=== PATIENT | male | born 1935 | race Two or more races ===

== ENCOUNTER 2019-06-30 23:37 | Inpatient (IN) | payer MEDICARE, OTHER ==
[~2019-06-30] VITALS: Ht 165.1 cm; Wt 80.3 kg
--- NOTE | 2019-06-30 23:37 | NUR ---
PT BIB EMS C/O NONRADIATING INTERMITTENT MIDSTERNAL CP X2 DAYS, NOTED PT CONSTANTLY BURPING. PT AOX4. RESP EVEN AND UNLABORED. PT ON MONITOR IN BED 2. WILL CONTINUE TO MONITOR.
--- NOTE | 2019-06-30 23:44 | NUR ---
TECH AT BEDSIDE FOR EKG
[2019-07-01] VITALS (28 sets, daily range): BP systolic 125–163; BP diastolic 25–93
--- NOTE | 2019-07-01 00:19 | NUR ---
RADIOLOGY AT BEDSIDE FOR XRAY
[2019-07-01 00:22] LABS: BASOPHILS # (AUTO) 0.1 /CMM (0.0-0.2); BASOPHILS % (AUTO) 1.3 % (0.0-2.0); EOSINOPHILS % (AUTO) 2.2 % (0.0-6.0); HEMATOCRIT 47 % (39-51); HEMOGLOBIN 15.9 g/dL (13.5-17.5); LYMPHOCYTES # (AUTO) 2.6 /CMM (0.8-4.8); LYMPHOCYTES % (AUTO) 30.5 % (20.0-44.0); MEAN CORPUSCULAR HGB CONC 34 g/dl (31.0-36.0); MEAN CORPUSCULAR VOLUME 92 fL (80-96); MONOCYTES % (AUTO) 11.2 % (2.0-12.0); NEUTROPHILS # (AUTO) 4.7 /CMM (1.8-8.9); NEUTROPHILS % (AUTO) 54.8 % (43.0-81.0); PLATELET COUNT (AUTO) 224 /CMM (150-450); RED BLOOD CELL COUNT(AUTO) 5.11 MIL/uL (4.5-6.0); WHITE BLOOD COUNT (AUTO) 8.6 K/uL (4.3-11.0)
--- NOTE | 2019-07-01 00:22 | NUR ---
TECH AT BEDSIDE FOR EKG
[2019-07-01 00:28] LABS: CALCIUM, SERUM 9.4 mg/dL (8.5-10.1); CREATININE 0.9 mg/dL (0.6-1.3); POTASSIUM 4.2 mmol/L (3.5-5.1)
[2019-07-01] MEDS ORDERED: ASPIRIN 81 MG TAB.CHEW ONE (00:29)
[2019-07-01] MEDS ORDERED: FAMOTIDINE (20 MG) 20 MG TABLET ONE (00:29)
[2019-07-01] MEDS ORDERED: FAMOTIDINE (20 MG) 20 MG TABLET PO ONE (00:30)
[2019-07-01] MEDS ORDERED: ASPIRIN 81 MG TAB.CHEW PO ONE (00:30)
--- NOTE | 2019-07-01 02:48 | NUR ---
CALLED NURSING CLAY PIGEON SETTER FOR TELE BED
--- NOTE | 2019-07-01 03:41 | NUR ---
REPORT GIVEN TO JULIO CESAR CAAL FOR TREY
[2019-07-01] MEDS ORDERED: ALBU1.257 IH (03:45)
[2019-07-01] MEDS ORDERED: ATEN25TA PO (03:45)
--- NOTE | 2019-07-01 04:01 | NUR ---
PHLEB AT BEDSIDE FOR BLOOD DRAW
--- NOTE | 2019-07-01 04:05 | NUR ---
SHELL REPRINT OPERATORRESTAURANT BUSSER NOTES RECEIVED FORM ER THIS 84 YO MALE,ALERT,ORIENTED X4,SPEAK QATARI/MALDIVIAN,WITH LITTLE TELUGU,WITH CHIEF COMPLAINTS OF CHEST PAIN X 2 DAYS,NO SOB.AMBULATE WITH STEADY GAIT.NO SKIN ISSUES.SALINE LOCK LEFT AC INTACT AND PATENT.CALL LIGHT IN REACH,NEEDS ANTICIPATED.
--- NOTE | 2019-07-01 04:20 | NUR ---
DATER ASSEMBLER NOTES REPORTED BY [employer] REPORTING CRITICAL SECOND TROPONIN RESULT OF.[id number].PATIENT DENIES PAIN AT THE MOMENT,TRYING TO SLEEP AT THE MOMENT.
--- NOTE | 2019-07-01 04:24 | NUR ---
PT TRANSFERRED TO THIRD FLOOR
--- NOTE | 2019-07-01 04:28 | NUR ---
AIRWAY CONTROLLER NOTES DR MCHUGH MADE AWARE WITH NEW ORDER TO GIVEN LOVENOX 80MG Q 12 HOURS SCHEDULED,TO START DOSE NOW,AWAITING FOR PHAMACY TO VERIFIED.
[2019-07-01] MEDS ORDERED: ENOXAPARIN SODIUM 80 MG/0.8 ML DISP.SYRIN SQ SCH ×2 (05:00→18:00)
[2019-07-01] MEDS ORDERED: NITROGLYCERIN 0.4 MG/TAB BOTTLE SL PRN (05:30)
[2019-07-01] MEDS ORDERED: ENOXAPARIN SODIUM 80 MG/0.8 ML DISP.SYRIN SQ ONE (05:30)
[2019-07-01] MEDS ORDERED: MORPHINE SULFATE INJ 2 MG/ML DISP.SYRIN IV PRN (05:30)
[2019-07-01] MEDS ORDERED: DEXTROSE 50%-WATER 50 ML DISP.SYRIN IV PRN (05:30)
--- NOTE | 2019-07-01 05:47 | NUR ---
OIL SCOUT NOTES STARTED ON LOVENOX 80MG SQ,GIVEN ON RIGHT UPPER ABDOMEN
--- NOTE | 2019-07-01 06:12 | NUR ---
SHINGLE CATCHER NOTES NOTED SOME SKIN RASH ON ABDOMINAL AREA,PICTURE TAKEN, ON CHART
[2019-07-01 06:24] LABS: THYROID STIMULATING HORMONE 3.441 uIU/mL (0.358-3.74)
--- NOTE | 2019-07-01 07:15 | NUR ---
INVESTIGATION CLERK OPENING NOTES RECEIVED PATIENT IN BED ALERT AND AWAKE ORIENTED X4. DENIES ANY C/O PAIN NOR DISCOMFORT. DENIES ANY C/O CHEST PAIN. NO SOB. AMBULATORY WITH STEADY GAIT. SL LEFT AC # 18 INTACT AND PATENT. BED IN LOWEST POSITION, LOCKED. CALL LIGHT WITHIN REACH. RESTING COMFORTABLY IN BED.
[2019-07-01] MEDS: BLOOD SUGAR DIAGNOSTIC 1 EACH STRIP IN SCH ×4 (08:25→21:11)
--- NOTE | 2019-07-01 09:05 | NUR ---
BED RUBBER NOTES PATIENT OFF UNIT FOR CTA HEART WITH 3D IMAGE.
[2019-07-01] MEDS ORDERED: IOHEXOL-350 100 ML VIAL IV ONE ×2 (09:12→09:52)
[2019-07-01] MEDS ORDERED: IV NS 0.9% 250 ML IV ONE (09:12)
[2019-07-01] MEDS ORDERED: CT SWABBABLE VALVE TRANS SET 1 EA INFUS.SET MC ONE (09:12)
[2019-07-01] MEDS ORDERED: METOPROLOL TARTRATE INJ 5 MG/5 ML AMPUL ONE ×2 (09:14→09:49)
[2019-07-01] MEDS: METOPROLOL TARTRATE INJ 5 MG/5 ML AMPUL IVP PRN ×5 (09:28→09:48)
[2019-07-01] MEDS ORDERED: NITROGLYCERIN 0.4 MG/TAB BOTTLE SL ONE (09:30)
--- NOTE | 2019-07-01 09:35 | NUR ---
RT NOTE ATTEMPTED ECG. PATIENT NOT AVAILABLE AT THIS TIME. JULIO CESAR [place] AWARE. WILL TRY AGAIN LATER.
[2019-07-01] MEDS: ASPIRIN 81 MG TAB.CHEW PO SCH (10:39)
[2019-07-01] MEDS: VALSARTAN 80 MG TABLET PO SCH (10:40)
--- NOTE | 2019-07-01 10:40 | NUR ---
ANODE WORKER NOTES PATIENT RETURNED TO UNIT FROM CTA B/P 132/70 HR 72. AM MEDS GIVEN SATISH WELL.
[2019-07-01] MEDS ORDERED: METOPROLOL TARTRATE 50 MG TABLET PO SCH ×3 (12:00→17:00)
--- NOTE | 2019-07-01 12:00 | NUR ---
TELEVISION PARTS TESTER NOTES PATIENT DUE METOPROLOL 50 MG, HOW EVER PATIENT REFUSED BP CHECK AND MED AT THIS TIME, DESPITE EXPLAINING OF RISK AND BENEFITS AT MULTIPLE TIMES. PATIENT IN NO DISTRESS. DENIES ANY C/O PAIN. RESPIRATION REGULAR AND UNLABORED. WILL CONTINUE TO MONITOR.
[2019-07-01] MEDS ORDERED: IODIXANOL 150 ML IV ONE (13:43)
[2019-07-01] MEDS ORDERED: MIDAZOLAM HCL 2 MG/2ML VIAL ONE (13:44)
[2019-07-01] MEDS ORDERED: LIDOCAINE HCL/PF 1% 30 ML SDV ONE (13:44)
[2019-07-01] MEDS ORDERED: VERAPAMIL HCL IV 5 MG/2 ML VIAL ONE (13:44)
[2019-07-01] MEDS ORDERED: NITROGLYCERIN ICAR 1,000 MCG/10 ML VIAL ICAR ONE (13:45)
[2019-07-01] MEDS ORDERED: FENTANYL PF 100MCG/2ML AMPUL ONE (13:45)
[2019-07-01] MEDS ORDERED: HEPARIN SODIUM, PORCINE 5000 UNITS/1 ML VIAL ONE (13:46)
[2019-07-01] MEDS ORDERED: IV NS 0.9% 1,000 ML ONE (13:53)
[2019-07-01] MEDS ORDERED: HEPARIN SODIUM, PORCINE 1,000 UNIT/ML VIAL ONE ×2 (14:02→14:03)
--- NOTE | 2019-07-01 14:02 | NUR ---
HITCH TECHNICIAN NOTES PATIENT OFF UNIT. LEFT FOR MAINTENANCE CARPENTER. PATIENT LEFT IN STABLE CONDITION VIA GURNEY. FAMILY TOOK PERSONAL BELONGINGS AND SIGNED BELONGING LIST.
[2019-07-01] MEDS ORDERED: IODIXANOL 320MG/ML 100 ML IV ONE (14:36)
[2019-07-01] MEDS ORDERED: ASPIRIN 325 MG TABLET ONE (14:46)
[2019-07-01] MEDS ORDERED: TICAGRELOR 90 MG TABLET PO ONE (14:46)
[2019-07-01] MEDS ORDERED: IODIXANOL 320MG/ML 50 ML IV ONE ×2 (14:47→15:31)
--- NOTE | 2019-07-01 17:25 | NUR ---
PROCESS DEVELOPMENT MANAGER NOTES PATIENT TRANSFERRED TO ICU FROM V BLOCK SAW OPERATOR. REPORT GIVEN TO
--- NOTE | 2019-07-01 17:40 | NUR ---
received pt from mason tender restoration labor, s/p stent placement, a/o x4, SR, TR band on LFA, no bleeding noted, SRI bandage on L arm, pulses are palpable, v/s stable, no pain, family at the bedside, seen by Dr. Combs.
--- NOTE | 2019-07-01 19:30 | NUR ---
INSPECTOR TUBESJULIO CESAR GALLOWAY AT [facility]. PT DECLINED HEAD CT. STATES LET ME REST FOR NOW. WILL INFORM . Addendum: 07/01/19 at 1957 by NAMRATA MOON RN WRONG PT
[2019-07-01] MEDS: ATORVASTATIN 40 MG TABLET PO SCH (21:11)
[2019-07-01] MEDS: TICAGRELOR 90 MG TABLET PO SCH (21:11)
[2019-07-01] MEDS: INSULIN REGULAR, HUMAN 100 UNIT/ML 3 ML VIAL SQ PRN (21:21)
--- NOTE | 2019-07-01 21:25 | NUR ---
GROCERY SUPERVISOR BLOOD GLUCOSE 199 PT DECLINED INULIN. CONTINUE TO MONITOR.
[2019-07-01] MEDS ORDERED: SIMVASTATIN 40 MG TABLET PO SCH (22:00)
[2019-07-01] MEDS ORDERED: SIMVASTATIN 20 MG TABLET PO SCH (22:00)
[2019-07-02] VITALS (47 sets, daily range): BP systolic 81–154; BP diastolic 32–100
--- NOTE | 2019-07-02 03:44 | NUR ---
SWIMMING POOL ATTENDANT PT EKG RHYTHM NOTED TO BE DIFFERENT ON MONITOR; EKG SHOWS AFIB. S/W PMD W/ORDERS FOR LABS IN AM. NO NEED TO CALL CARDIOLOGY AT THIS TIME.
[2019-07-02 04:16] LABS: BASOPHILS # (AUTO) 0.1 /CMM (0.0-0.2); BASOPHILS % (AUTO) 1.2 % (0.0-2.0); HEMATOCRIT 46 % (39-51); HEMOGLOBIN 15.4 g/dL (13.5-17.5); LYMPHOCYTES # (AUTO) 1.9 /CMM (0.8-4.8); LYMPHOCYTES % (AUTO) 15.4 % (20.0-44.0); MEAN CORPUSCULAR HGB CONC 34 g/dl (31.0-36.0); MEAN CORPUSCULAR VOLUME 91 fL (80-96); MONOCYTES % (AUTO) 8.1 % (2.0-12.0); NEUTROPHILS # (AUTO) 9.1 /CMM (1.8-8.9); NEUTROPHILS % (AUTO) 74.3 % (43.0-81.0); PLATELET COUNT (AUTO) 221 /CMM (150-450); RED BLOOD CELL COUNT(AUTO) 4.98 MIL/uL (4.5-6.0); WHITE BLOOD COUNT (AUTO) 12.2 K/uL (4.3-11.0)
[2019-07-02 04:38] LABS: CALCIUM, SERUM 9.2 mg/dL (8.5-10.1); CREATININE 0.9 mg/dL (0.6-1.3); MAGNESIUM 1.6 mg/dL (1.8-2.4); PHOSPHORUS 3.2 mg/dL (2.5-4.9); POTASSIUM 3.8 mmol/L (3.5-5.1)
--- NOTE | 2019-07-02 06:05 | NUR ---
REJECTED ITEMS CLERK NO BLEEDING NOTED; PULSES REMAIN STRONG.
[2019-07-02] MEDS ORDERED: AMIODARONE 900 MG in IV D5W 500 ML IV PRN (06:30)
[2019-07-02] MEDS ORDERED: AMIODARONE 150 MG in IV D5W 100 ML IV ONE (06:30)
--- NOTE | 2019-07-02 06:39 | NUR ---
CREPING MACHINE OPERATOR HELPER PT REFUSED SECOND IV ACCESS; MAGNESIUM AND AMIODARONE PENDING TO BE VERIFIED BY PHARMACY.
[2019-07-02] MEDS: Magnesium 1GM/D5W 100ML PREMIX 100 ML IV SCH ×2 (06:55→08:03)
[2019-07-02] MEDS: BLOOD SUGAR DIAGNOSTIC 1 EACH STRIP IN SCH ×4 (07:56→21:33)
[2019-07-02] MEDS: ASPIRIN 81 MG TAB.CHEW PO SCH (08:10)
[2019-07-02] MEDS: VALSARTAN 80 MG TABLET PO SCH (08:10)
[2019-07-02] MEDS: TICAGRELOR 90 MG TABLET PO SCH ×2 (08:10→16:14)
[2019-07-02] MEDS: APIXABAN 5 MG TABLET PO SCH ×2 (08:18→16:17)
--- NOTE | 2019-07-02 08:50 | NUR ---
received pt from ship rigger apprentice, a/o x4, A fib controlled since 299, on RA, sat well, tolerates diet, uses urinal, v/s stable, no pain, pt turns and repositions by himself.
[2019-07-02] MEDS ORDERED: AMIODARONE 900 MG in IV D5W 482 ML IV PRN (09:30)
--- NOTE | 2019-07-02 11:45 | NUR ---
patient converted back to NSR.
[2019-07-02] MEDS: INSULIN REGULAR, HUMAN 100 UNIT/ML 3 ML VIAL SQ PRN ×2 (12:13→16:51)
[2019-07-02] MEDS: AMIODARONE HCL 200 MG TABLET PO SCH (16:15)
--- NOTE | 2019-07-02 16:28 | NUR ---
pt is resting in the bed, a/o x4, NSR, off of amio gtt, v/s stable, no pain.
--- NOTE | 2019-07-02 19:09 | NUR ---
MANUGRAPHER. INITIAL ASSESSMENT. RECEIVED THE PT REST ON THE BED. AWAKE,A LEFT, FOLLOW COMMANDS. DEPARTMENT OF MATHEMATICS CHAIR SHOWING AT THIS TIME NSR WITH PAC. PT ON ROOM AIR. P DENIES CHEST PAIN. VITALS STABLE. WILL CONTINUE TO MONITOR VITALS.
[2019-07-02] MEDS: ATORVASTATIN 40 MG TABLET PO SCH (21:33)
[2019-07-03] VITALS (17 sets, daily range): BP systolic 99–152; BP diastolic 46–78
[2019-07-03 04:21] LABS: BASOPHILS # (AUTO) 0.1 /CMM (0.0-0.2); BASOPHILS % (AUTO) 0.6 % (0.0-2.0); EOSINOPHILS % (AUTO) 1.1 % (0.0-6.0); HEMATOCRIT 42 % (39-51); HEMOGLOBIN 14.3 g/dL (13.5-17.5); LYMPHOCYTES # (AUTO) 1.7 /CMM (0.8-4.8); LYMPHOCYTES % (AUTO) 18.1 % (20.0-44.0); MEAN CORPUSCULAR HGB CONC 34 g/dl (31.0-36.0); MEAN CORPUSCULAR VOLUME 92 fL (80-96); MONOCYTES # (AUTO) 0.9 /CMM (0.1-1.30); MONOCYTES % (AUTO) 9.3 % (2.0-12.0); NEUTROPHILS # (AUTO) 6.8 /CMM (1.8-8.9); NEUTROPHILS % (AUTO) 70.9 % (43.0-81.0); PLATELET COUNT (AUTO) 208 /CMM (150-450); RED BLOOD CELL COUNT(AUTO) 4.55 MIL/uL (4.5-6.0); WHITE BLOOD COUNT (AUTO) 9.5 K/uL (4.3-11.0)
[2019-07-03 04:39] LABS: ALBUMIN 3.4 g/dL (3.4-5.0); BILIRUBIN,TOTAL 1.1 mg/dL (0.2-1.0); CALCIUM, SERUM 8.9 mg/dL (8.5-10.1); MAGNESIUM 1.9 mg/dL (1.8-2.4); PHOSPHORUS 4.3 mg/dL (2.5-4.9); POTASSIUM 3.9 mmol/L (3.5-5.1); TOTAL PROTEIN, SERUM 6.9 g/dL (6.4-8.2)
--- NOTE | 2019-07-03 07:14 | NUR ---
FACTORY HAND NOTE RECEIVED PATIENT ASLEEP IN BED. NO SIGNS OR SYMPTOMS OF RESPIRATORY DISTRESS SATURATING 93% ON ROOM AIR. PATIENT A/O X4 LAO SPEAKING. NO C/O CHEST PAIN SINUS ON THE MONITOR. USING URINAL AT BEDSIDE CLEAR YELLOW URINE NOTE. R HAND # 20 GAUGE SALINE LOCKED. SAFETY/FALL PRECAUTIONS IN PLACE BED IN LOW LOCKED POSITION CALL LIGHT WITHIN REACH. WILL CONT TO MONITOR ACCORDINGLY.
[2019-07-03] MEDS: INSULIN REGULAR, HUMAN 100 UNIT/ML 3 ML VIAL SQ PRN (07:38)
[2019-07-03] MEDS: BLOOD SUGAR DIAGNOSTIC 1 EACH STRIP IN SCH (07:38)
[2019-07-03] MEDS: AMIODARONE HCL 200 MG TABLET PO SCH (08:08)
[2019-07-03] MEDS: VALSARTAN 80 MG TABLET PO SCH (08:08)
[2019-07-03] MEDS: ASPIRIN 81 MG TAB.CHEW PO SCH (08:08)
[2019-07-03] MEDS: TICAGRELOR 90 MG TABLET PO SCH (08:09)
[2019-07-03] MEDS: APIXABAN 5 MG TABLET PO SCH (08:09)
[2019-07-03] MEDS ORDERED: AMIO200T7 PO (09:21)
[2019-07-03] MEDS ORDERED: ATOR40TA PO (09:21)
[2019-07-03] MEDS ORDERED: ASPI-1169 PO (09:21)
[2019-07-03] MEDS ORDERED: APIX5TAB PO (09:21)
[2019-07-03] MEDS ORDERED: VALS80TA2 PO (09:21)
[2019-07-03] MEDS ORDERED: TICA90TA PO (09:21)
--- NOTE | 2019-07-03 10:20 | NUR ---
PATIENT ORDERS FOR DISCHARGE. DR TREADWELL SPOKE WITH SON GENO. ALL EXIT CARE DONE HAND OFF GIVEN TO PETRONA HARRELL
--- NOTE | 2019-07-03 11:52 | NUR ---
COMMERCIAL PAINTERMACHINE FELLER NOTES: Pt DC'd to home as ordered. Called Dr. Escobar regarding prescription of medication and clarified new home meds (ASA, Eliquis, Brillinta), per MD RX sent electronically to pt's pharmacy & said okay to take those anticoagulants at home. DC instructions & paperworks explained to the pt's son Margarito, special emphasis placed on medications to take (frequency, next dose, side effects) w/ verbalization of understanding. Confirmed w/ pt's son Margarito that they have pt's medications at home including Brillinta and also the Brillinta packet that they rec'd s/p PCI procedure. Additional instructions provided re: after care on L radial arm w/ verbalization of understanding. IV line access removed, pressure dressing applied, no s/sx of bleeding. All belongings sent w/ pt, nothing missing. No concerns/issues identified during transfer. Pt left the unit in stable condition via wheelchair accompanied by RN & family.
== END 2019-07-03 11:50 | disposition home or self-care (01) | DRG 246 ==
LOC: ER 23:39 → TELE 07-01 03:58 → ICU 07-01 16:30
PROVIDERS: ADMIT Student in an Organized Health Care Education/Training Program; ATTEND Student in an Organized Health Care Education/Training Program
PROC: 4A023N7 Measurement of Cardiac Sampling and Pressure, Left Heart, Percutaneous Approach (ICD-10-PCS; principal; 2019-07-01)
PROC: 027034Z Dilation of Coronary Artery, One Artery with Drug-eluting Intraluminal Device, Percutaneous Approach (ICD-10-PCS; 2019-07-01)
PROC: B2111ZZ Fluoroscopy of Multiple Coronary Arteries using Low Osmolar Contrast (ICD-10-PCS; 2019-07-01)
DX: I25.10 Atherosclerotic heart disease of native coronary artery without angina pectoris (principal); I21.4 Non-ST elevation (NSTEMI) myocardial infarction; I16.0 Hypertensive urgency; E11.9 Type 2 diabetes mellitus without complications; I10 Essential (primary) hypertension; E78.5 Hyperlipidemia, unspecified; Z79.51 Long term (current) use of inhaled steroids; Z79.899 Other long term (current) drug therapy; D72.829 Elevated white blood cell count, unspecified; I70.0 Atherosclerosis of aorta; J45.909 Unspecified asthma, uncomplicated; F17.200 Nicotine dependence, unspecified, uncomplicated; I48.91 Unspecified atrial fibrillation
CPT/HCPCS: 36218; 36415; 71045-TC; 75574; 80048-TC; 80053-TC; 80061-TC; 82962-TC; 83735-TC; 84100-TC; 84439-TC; 84443-TC; 84484-TC; 85025-TC; 87081-TC; 92929; 92980; 92982; 92995-TC; 93307-TC; 93452; C1725; C1769; C1887; G0269; G0378; J0282; J1644; J1650; J1815; J2250; J3010; J3475; J3490; J7050; J7060; Q9967

== ENCOUNTER 2019-07-15 07:35 | Inpatient (IN) | payer MEDICARE, OTHER ==
[~2019-07-15] VITALS: Ht 165.1 cm; Wt 80.7 kg
[~2019-07-15 07:35] MED LIST: ALBU1.257 IH; AMIO200T7 PO; APIX5TAB PO; ASPI-1169 PO; ATOR40TA PO; TICA90TA PO; VALS80TA2 PO
--- NOTE | 2019-07-15 07:38 | NUR ---
PT BIBRA FROM HOME C/O RECTAL BLEEDING STARTED LAST NIGHT, PT IS AAOX3 SLOV[place] SPEAKING ONLY, NOT IN RESPIRATORY DISTRESS, HOOKED TO MONITOR, KEPT RESTED AND COMFORTABLE, WILL CONTINUE TO MONITOR.
--- NOTE | 2019-07-15 07:51 | NUR ---
SEEN AND EXAMINED BY DR. MATIAS.
--- NOTE | 2019-07-15 07:59 | NUR ---
IV LINE ESTABLISHED, BLOOD DRAWN AND SENT TO LAB.
[2019-07-15] MEDS ORDERED: IV NS 0.9% 1,000 ML BAG IV ONE (08:00)
--- NOTE | 2019-07-15 08:12 | NUR ---
BUILDINGS PAINTER AT BEDSIDE FOR XRAY.
[2019-07-15 08:19] LABS: BASOPHILS # (AUTO) 0.1 /CMM (0.0-0.2); BASOPHILS % (AUTO) 0.6 % (0.0-2.0); HEMATOCRIT 42 % (39-51); HEMOGLOBIN 14.6 g/dL (13.5-17.5); LYMPHOCYTES # (AUTO) 1.2 /CMM (0.8-4.8); LYMPHOCYTES % (AUTO) 11.7 % (20.0-44.0); MEAN CORPUSCULAR HGB CONC 35 g/dl (31.0-36.0); MEAN CORPUSCULAR VOLUME 91 fL (80-96); MONOCYTES # (AUTO) 0.6 /CMM (0.1-1.30); MONOCYTES % (AUTO) 6.3 % (2.0-12.0); NEUTROPHILS # (AUTO) 8.2 /CMM (1.8-8.9); NEUTROPHILS % (AUTO) 80.4 % (43.0-81.0); PLATELET COUNT (AUTO) 261 /CMM (150-450); RED BLOOD CELL COUNT(AUTO) 4.58 MIL/uL (4.5-6.0); WHITE BLOOD COUNT (AUTO) 10.2 K/uL (4.3-11.0)
[2019-07-15 08:26] LABS: CALCIUM, SERUM 8.7 mg/dL (8.5-10.1); CREATININE 0.9 mg/dL (0.6-1.3); POTASSIUM 4.2 mmol/L (3.5-5.1)
[2019-07-15 08:32] LABS: ALBUMIN 3.7 g/dL (3.4-5.0); BILIRUBIN,DIRECT 0.3 mg/dL (0.0-0.2); BILIRUBIN,TOTAL 1.2 mg/dL (0.2-1.0); TOTAL PROTEIN, SERUM 7.1 g/dL (6.4-8.2)
--- NOTE | 2019-07-15 08:58 | NUR ---
PAGED [facility].
--- NOTE | 2019-07-15 09:30 | NUR ---
CALLED NURSING SUP FOR TELE BED.
--- NOTE | 2019-07-15 09:59 | NUR ---
NURSING SUP GAVE TELE BED 326-1.
--- NOTE | 2019-07-15 10:08 | NUR ---
REPORT GIVEN TO JULIO CESAR MORTON FOR TREY.
[2019-07-15 10:30] VITALS: BP 142/80
--- NOTE | 2019-07-15 10:45 | NUR ---
M/S RN NOTES PATIENT RECEIVED ALERT AND ORIENTED X3, POLISH SPEAKING. PATIENT IN NO RESPIRATORY DISTRESS, NO C/O PAIN AT THIS TIME. NO C/O NAUSEA/VOMITING. PATIENT'S SKIN ASSESSED, NO SKIN BREAKDOWN, PHOTOS TAKEN AND PLACED IN CHART. IV SL ON THE RIGHT WRIST #20G INTACT AND PATENT. PATIENT'S NEEDS ATTENDED. NOTIFIED DR. MONCADA FOR ADMISSION ORDERS. BED ON LOWEST LOCKED POSITION, CALL LIGHT WITHIN REACH. WILL CONTINUE TO MONITOR.
[2019-07-15] MEDS ORDERED: MAGNESIUM HYDROXIDE 30 ML UDC PO PRN (12:00)
[2019-07-15] MEDS ORDERED: Z GUARD REMEDY 2 OZ OINT TP PRN (12:00)
[2019-07-15] MEDS ORDERED: ACETAMINOPHEN 325 MG TABLET PO PRN (12:00)
[2019-07-15] MEDS ORDERED: HYDROCODONE/APAP 5/325MG 1 EACH TABLET PO PRN (12:00)
[2019-07-15] MEDS ORDERED: MAG HYDROX/AL HYDROX/SIMETH 30 ML UDC PO PRN (12:00)
[2019-07-15] MEDS ORDERED: ZOLPIDEM TARTRATE 5 MG TABLET PO PRN (12:00)
[2019-07-15] MEDS ORDERED: ONDANSETRON HCL/PF 4 MG/2 ML VIAL IVP PRN (12:00)
[2019-07-15] MEDS: IV NS 0.9% 1,000 ML IV SCH ×2 (12:05→21:45)
[2019-07-15 16:00] VITALS: BP 132/80
[2019-07-15] MEDS: AMIODARONE HCL 200 MG TABLET PO SCH (17:00)
--- NOTE | 2019-07-15 19:02 | NUR ---
M/S RN NOTES PATIENT AWAKE IN BED, FAMILY AT BEDSIDE. PATIENT IN NO RESPIRATORY DISTRESS, NO C/O PAIN AT THIS TIME. PATIENT ON NPO STATUS. SKIN WARM TO TOUCH. IV NS INFUSING ON THE RIGHT WRIST, INTACT AND PATENT. MINIMAL BRIGHT RED BLOOD ON DIAPER. PATIENT'S NEEDS ATTENDED. BED ON LOWEST LOCKED POSITION, CALL LIGHT WITHIN REACH. WILL ENDORSE TO ONCOMING NURSE.
--- NOTE | 2019-07-15 19:36 | NUR ---
MS RN RECEIVE PT IN BED A/O X 3, STABLE AND NOT IN DISTRESS, RESPIRATIONS EVEN AND UNLABORED. WILL CONT TO MTR
[2019-07-15 20:00] VITALS: BP 146/82
[2019-07-15] MEDS ORDERED: ATORVASTATIN 40 MG TABLET PO SCH (22:00)
--- NOTE | 2019-07-16 03:55 | NUR ---
PT C/O OF HEADACHE PAGED AND RELAYED TO HOSPITALIST OBTAINED ORDER OF TORADOL 30 MG IVP X 1 ONLY READ BACK AND VERIFIED ORDERS NOTED AND CARRIED OUT
[2019-07-16] MEDS ORDERED: KETOROLAC TROMETHAMINE INJ 30 MG/ML VIAL IV ONE (04:00)
--- NOTE | 2019-07-16 06:31 | NUR ---
ASLEEP AND EASILY AWAKEN,NO S/S OF DISTRESS, MAINTAINS NPO, NURSING CARE RENDERED, KEPT CLEAN AND DRY AND COMFORTABLE. NEEDS ATTENDED AND ANTICIPATED. SAFETY MEASURES AT ALL TIMES. ENDORSE TO THE NEXT SHIFT
[2019-07-16 06:55] LABS: BASOPHILS % (AUTO) 0.6 % (0.0-2.0); EOSINOPHILS % (AUTO) 1.6 % (0.0-6.0); HEMATOCRIT 41 % (39-51); HEMOGLOBIN 13.9 g/dL (13.5-17.5); LYMPHOCYTES # (AUTO) 1.1 /CMM (0.8-4.8); LYMPHOCYTES % (AUTO) 14.8 % (20.0-44.0); MEAN CORPUSCULAR HGB CONC 34 g/dl (31.0-36.0); MEAN CORPUSCULAR VOLUME 92 fL (80-96); MONOCYTES # (AUTO) 0.6 /CMM (0.1-1.30); MONOCYTES % (AUTO) 8.2 % (2.0-12.0); NEUTROPHILS # (AUTO) 5.8 /CMM (1.8-8.9); NEUTROPHILS % (AUTO) 74.8 % (43.0-81.0); PLATELET COUNT (AUTO) 213 /CMM (150-450); RED BLOOD CELL COUNT(AUTO) 4.38 MIL/uL (4.5-6.0); WHITE BLOOD COUNT (AUTO) 7.7 K/uL (4.3-11.0)
[2019-07-16 07:06] LABS: CALCIUM, SERUM 7.9 mg/dL (8.5-10.1); CREATININE 0.8 mg/dL (0.6-1.3); PHOSPHORUS 2.8 mg/dL (2.5-4.9); POTASSIUM 3.9 mmol/L (3.5-5.1)
--- NOTE | 2019-07-16 07:32 | NUR ---
MS RN NOTES Received Patient resting and asleep in bed. VS stable with no acute distress. Breathing even and unlabored on room air with no respiratory distress. No signs and symptoms of pain at this time. PIV on right wrist clean, intact and patent with NS running at 100ml/hr. Safety precautions in place. Bed locked and set to lowest position with side rails x 2 up. All needs rendered at this time. Call light within reach. Will continue to monitor.
[2019-07-16 08:00] VITALS: BP 146/84
[2019-07-16 08:53] VITALS: BP 146/84
[2019-07-16] MEDS: AMIODARONE HCL 200 MG TABLET PO SCH (08:53)
[2019-07-16] MEDS: IV NS 0.9% 1,000 ML IV SCH (08:53)
[2019-07-16] MEDS ORDERED: ALBUTEROL HALF STRENGTH 1.25 MG/3 ML VIAL.NEB IH SCH (09:00)
[2019-07-16] MEDS ORDERED: VALSARTAN 80 MG TABLET PO SCH (09:00)
[2019-07-16] MEDS ORDERED: TICAGRELOR 90 MG TABLET PO SCH (09:00)
[2019-07-16] MEDS ORDERED: ASPIRIN 81 MG TAB.CHEW PO SCH (09:00)
--- NOTE | 2019-07-16 10:03 | NUR ---
MS RN NOTES Followed up with Paige SANCHEZ to clarify when and what time GI consult will be done. Patient in stable condition. Daughter at bedside. Will continue to monitor.
--- NOTE | 2019-07-16 10:51 | NUR ---
MS RN NOTES Per Paige SANCHEZ, Golytely 1 bottle x 1 now, Mag citrate 1 bottle x 1 now, Fleet enema x 2 PRN, Clear Liquid Diet, and obtain consent for EGD/Colonoscopy. Explained and reviewed with daughter and Patient. Per Patient, he wants to go AMA. Explained risks of leaving AMA at this time. Patient still wants to go AMA. Notified Paige SANCHEZ. Patient in stable condition. Will continue to monitor.
--- NOTE | 2019-07-16 11:27 | NUR ---
MS RN AMA DISCHARGE NOTES Patient AMA discharge to home at this time. Patient in stable condition. VS stable with no acute distress. Breathing even and unlabored on room air with no respiratory distress. Denies pain. Noted bruises on left forearm and left thigh, otherwise skin intact. Patient refused skin assessment pictures. Removed intact PIV on right wrist. Discharge orders reviewed and explained to Patient and daughter. Patient and daughter verbalized understanding. AMA paperwork signed and placed in chart. All belongings with Patient. Patient will follow up with GI. Escorted Patient to the lobby for safety. Patient picked up by daughter, Thea.
== END 2019-07-16 11:27 | disposition left against medical advice (07) | DRG 378 ==
LOC: ER 07:36 → TELE 10:19 → MED 11:57
PROVIDERS: ADMIT Family Medicine; ATTEND Family Medicine
DX: K92.2 Gastrointestinal hemorrhage, unspecified (principal); E87.1 Hypo-osmolality and hyponatremia; T45.515A Adverse effect of anticoagulants, initial encounter; E11.9 Type 2 diabetes mellitus without complications; E78.5 Hyperlipidemia, unspecified; I10 Essential (primary) hypertension; E86.1 Hypovolemia; I25.10 Atherosclerotic heart disease of native coronary artery without angina pectoris; I48.91 Unspecified atrial fibrillation; E80.6 Other disorders of bilirubin metabolism; Z95.5 Presence of coronary angioplasty implant and graft; Y92.009 Unspecified place in unspecified non-institutional (private) residence as the place of occurrence of the external cause; I25.2 Old myocardial infarction; Z79.01 Long term (current) use of anticoagulants; R79.89 Other specified abnormal findings of blood chemistry
CPT/HCPCS: 36415; 71045-TC; 80048-TC; 80061-TC; 80076-TC; 83690-TC; 83735-TC; 84100-TC; 84484-TC; 85025-TC; 85730-TC; 86850-TC; 87081-TC; G0378; J1885; J7030

== ENCOUNTER 2022-05-15 16:50 | Inpatient (IN) | payer MEDICARE, OTHER ==
[~2022-05-15] VITALS: Ht 149.9 cm; Wt 68.0 kg
--- NOTE | 2022-05-15 17:39 | NUR ---
DR MATIAS AT BEDSIDE FOR EVAL.
[2022-05-15] MEDS ORDERED: methylPREDNISolone SOD SUCC 125 MG/2ML VIAL ONE (17:44)
--- NOTE | 2022-05-15 17:44 | NUR ---
COVID SWAB DONE AND SENT TO LAB
[2022-05-15] MEDS ORDERED: LEVO25TA9 PO (17:52)
[2022-05-15] MEDS ORDERED: SITA1TAB6 PO (17:52)
[2022-05-15] MEDS ORDERED: LOSA50TA39 PO (17:52)
[2022-05-15] MEDS ORDERED: DILT180C66 PO (17:52)
[2022-05-15] MEDS ORDERED: MONT10TA22 PO (17:52)
[2022-05-15] MEDS ORDERED: AMIO200T5 PO (17:52)
[2022-05-15] MEDS ORDERED: DIGO125T PO (17:52)
[2022-05-15] MEDS ORDERED: IPRATROPIUM NEB FS 0.5 MG/2.5 ML AMPUL.NEB ONE (17:53)
[2022-05-15] MEDS ORDERED: ALBUTEROL FS 2.5 MG/3 ML VIAL.NEB ONE (17:53)
--- NOTE | 2022-05-15 17:55 | NUR ---
RT AT BEDSIDE FOR BREATHING TREATMENT
[2022-05-15] MEDS ORDERED: methylPREDNISolone SOD SUCC 125 MG/2ML VIAL IV ONE (18:00)
[2022-05-15] MEDS ORDERED: ALBUTEROL FS 2.5 MG/3 ML VIAL.NEB NEB ONE (18:00)
[2022-05-15] MEDS ORDERED: IPRATROPIUM NEB FS 0.5 MG/2.5 ML AMPUL.NEB NEB ONE (18:00)
[2022-05-15 18:09] LABS: BASOPHILS % (AUTO) 0.2 % (0.0-2.0); EOSINOPHILS % (AUTO) 0.4 % (0.0-6.0); HEMATOCRIT 30 % (39-51); HEMOGLOBIN 9.9 g/dL (13.5-17.5); LYMPHOCYTES # (AUTO) 1.1 K/uL (0.8-4.8); LYMPHOCYTES % (AUTO) 12.1 % (20.0-44.0); MEAN CORPUSCULAR HGB CONC 33 g/dl (31.0-36.0); MEAN CORPUSCULAR VOLUME 91 fL (80-96); MONOCYTES # (AUTO) 0.7 K/uL (0.1-1.30); MONOCYTES % (AUTO) 7.5 % (2.0-12.0); NEUTROPHILS % (AUTO) 79.8 % (43.0-81.0); PLATELET COUNT (AUTO) 154 K/uL (150-450); RED BLOOD CELL COUNT(AUTO) 3.26 MIL/uL (4.5-6.0); WHITE BLOOD COUNT (AUTO) 8.8 K/uL (4.3-11.0)
--- NOTE | 2022-05-15 18:13 | NUR ---
RADIOLOGY AT BEDSIDE FOR CHEST XRAY.
[2022-05-15 18:22] LABS: CALCIUM, SERUM 8.1 mg/dL (8.5-10.1); CARBON DIOXIDE 24 mmol/L (21-32); CHLORIDE 108 mmol/L (98-107); CREATININE 2.5 mg/dL (0.6-1.3); GLUCOSE 159 mg/dL (74-106); POTASSIUM 4.2 mmol/L (3.5-5.1); SODIUM SERUM 140 mmol/L (136-145); UREA NITROGEN, BLOOD 48 mg/dL (7-18)
[2022-05-15 18:38] LABS: ALANINE AMINOTRANSFERASE 16 U/L (12-78); ALBUMIN 2.6 g/dL (3.4-5.0); ALKALINE PHOSPHATASE 70 U/L (46-116); ASPARTATE AMINOTRANSFERASE 15 U/L (15-37); BILIRUBIN,DIRECT 0.2 mg/dL (0.0-0.2); BILIRUBIN,TOTAL 0.8 mg/dL (0.2-1.0); TOTAL PROTEIN, SERUM 6.1 g/dL (6.4-8.2)
--- NOTE | 2022-05-15 19:03 | NUR ---
BED 199-1
[2022-05-15] MEDS ORDERED: ZOLPIDEM TARTRATE 5 MG TABLET PO PRN (19:30)
[2022-05-15] MEDS ORDERED: Z GUARD REMEDY 4 OZ OINT TP PRN (19:30)
[2022-05-15] MEDS ORDERED: ONDANSETRON HCL/PF 4 MG/2 ML VIAL IVP PRN (19:30)
[2022-05-15] MEDS ORDERED: LEVOFLOXACIN 500 MG /D5W 100ML 500 MG in PREMIX 1 EA IV ONE (19:30)
[2022-05-15] MEDS ORDERED: MAG HYDROX/AL HYDROX/SIMETH 30 ML UDC PO PRN (19:30)
[2022-05-15] MEDS ORDERED: ACETAMINOPHEN 325 MG TABLET PO PRN (19:30)
[2022-05-15] MEDS ORDERED: MAGNESIUM HYDROXIDE 30 ML UDC PO PRN (19:30)
[2022-05-15 19:57] LABS: EOSINOPHILS % (MANUAL) 1 % (0-4); LYMPHOCYTES % (MANUAL) 15 % (16-48); MONOCYTES % (MANUAL) 9 % (0-11.0); NEUTROPHILS % (MANUAL) 75 (42-76)
[2022-05-15 20:00] VITALS: BP 140/81
--- NOTE | 2022-05-15 20:10 | NUR ---
REPORT GIVEN TO JULIO CESAR GONZALEZ FOR TREY
--- NOTE | 2022-05-15 20:59 | NUR ---
PT TRANSPORTED TO UNIT ON GURNEY WITH EMT AND RN AT BEDSIDE. NAD NOTED DURING TRANSPORT
[2022-05-15] MEDS ORDERED: methylPREDNISolone SOD SUCC 40 MG/ML VIAL IV SCH (21:00)
--- NOTE | 2022-05-15 21:00 | NUR ---
RN NOTES; RECEIVED PT FROM ER WITH AUDREY IN RM 326-1,SATISH WELL ON 3L O2 VIA NC,NO SIGN SOB/DISTRESS NOTED.MALAGASY SPEAKING ACCOMPANY BY THE SON TO TRANSLATE,NO COMPLAINE OF PAIN/DISCOMFORT AT THIS TIMES.PT WAS ORIENTED IN THE THE SON TRANSLATE,SAFETY MEASURE IN PLACE,CALL LIGHT WITHIN REACH,WILL CONTINUE TO MONITOR.
[2022-05-15] MEDS: ATORVASTATIN 40 MG TABLET PO SCH (22:02)
[2022-05-15] MEDS: ALBUTEROL FS 2.5 MG/0.5 ML VIAL.NEB NEB SCH (23:30)
[2022-05-15] MEDS: IPRATROPIUM NEB FS 0.5 MG/2.5 ML AMPUL.NEB NEB SCH (23:30)
[2022-05-16] VITALS: BP 158/85
[2022-05-16] MEDS: ALBUTEROL FS 2.5 MG/0.5 ML VIAL.NEB NEB SCH ×6 (03:08→19:43)
[2022-05-16] MEDS: IPRATROPIUM NEB FS 0.5 MG/2.5 ML AMPUL.NEB NEB SCH ×6 (03:08→19:42)
[2022-05-16 04:28] VITALS: BP 150/75
[2022-05-16 06:29] LABS: BASOPHILS % (AUTO) 0.1 % (0.0-2.0); HEMATOCRIT 30 % (39-51); LYMPHOCYTES # (AUTO) 0.4 K/uL (0.8-4.8); LYMPHOCYTES % (AUTO) 9.5 % (20.0-44.0); MEAN CORPUSCULAR HGB CONC 33 g/dl (31.0-36.0); MEAN CORPUSCULAR VOLUME 91 fL (80-96); MONOCYTES # (AUTO) 0.1 K/uL (0.1-1.30); MONOCYTES % (AUTO) 1.2 % (2.0-12.0); NEUTROPHILS # (AUTO) 3.7 K/uL (1.8-8.9); NEUTROPHILS % (AUTO) 89.2 % (43.0-81.0); PLATELET COUNT (AUTO) 159 K/uL (150-450); RED BLOOD CELL COUNT(AUTO) 3.28 MIL/uL (4.5-6.0); WHITE BLOOD COUNT (AUTO) 4.2 K/uL (4.3-11.0)
--- NOTE | 2022-05-16 06:30 | NUR ---
RN CLOSING NOTES; PT IN BED AAOX3 BUT COMORAN SPEAKING,SATISH WELL ON 3L O2 VIA NC,NO SIGN SOB/DISTRESS NOTED.BREATHING EVEN AND UNLABORED,NO COMPLAINE OF PAIN/DISCOMFORT DURING SHIFT.DUE MEDS GIVEN ORDER,ALL NEEDS ATTENDED,IV ACCESS ON RAC 18G SL.SAFETY MEASURE IN PLACE,CALL LIGHT WITHIN REACH,WILL ENDORSED TO NEXT SHIFT.
[2022-05-16] MEDS: methylPREDNISolone SOD SUCC 40 MG/ML VIAL IV SCH ×3 (06:41→21:12)
[2022-05-16 07:08] LABS: CALCIUM, SERUM 8.1 mg/dL (8.5-10.1); CARBON DIOXIDE 24 mmol/L (21-32); CHLORIDE 107 mmol/L (98-107); CREATININE 2.6 mg/dL (0.6-1.3); GLUCOSE 240 mg/dL (74-106); MAGNESIUM 1.9 mg/dL (1.8-2.4); PHOSPHORUS 4.7 mg/dL (2.5-4.9); POTASSIUM 4.5 mmol/L (3.5-5.1); SODIUM SERUM 140 mmol/L (136-145); UREA NITROGEN, BLOOD 54 mg/dL (7-18)
--- NOTE | 2022-05-16 07:20 | NUR ---
RN OPENING NOTE RECEIVED PT IN BED AWAKE. NO SIGNS OF RESPIRATORY DISTRESS OR SOB NOTED. A/OX3, PT IS VIETNAMESE SPEAKING. PT ON RA. TELE MONITOR READING SR AT 97. NO COMPLAINTS OF PAIN AT THIS TIME. IV RAC INTACT AND PATENT. SAFETY CHECKS: BED LOCKED IN LOWEST POSITION, CALL LIGHT WITHIN REACH, SIDE RAILS X2. WILL CONTINUE TO MONITOR.
[2022-05-16 08:00] VITALS: BP 145/78
[2022-05-16] MEDS ORDERED: APIXABAN 5 MG TABLET PO SCH (09:00)
[2022-05-16] MEDS ORDERED: LEVOFLOXACIN 500 MG /D5W 100ML 500 MG/100 ML PIGGYBACK IV SCH (09:00)
[2022-05-16] MEDS: PANTOPRAZOLE 40 MG TABLET.DR PO SCH (09:20)
[2022-05-16] MEDS: MONTELUKAST SODIUM (10MG) 10 MG TABLET PO SCH (09:20)
[2022-05-16] MEDS: LEVOTHYROXINE SODIUM 25 MCG TABLET PO SCH (09:20)
[2022-05-16] MEDS: APIXABAN 5 MG TABLET PO SCH ×2 (09:21→17:15)
[2022-05-16] MEDS: AMIODARONE HCL 200 MG TABLET PO SCH ×2 (09:21→17:16)
[2022-05-16] MEDS: DILTIAZEM HCL CD 180 MG PO SCH (09:22)
[2022-05-16] MEDS: LINAGLIPTIN 5 MG TABLET PO SCH (09:22)
[2022-05-16 10:47] LABS: BAND % (MANUAL) 1 % (0.0-5.0); LYMPHOCYTES % (MANUAL) 7 % (16-48); MONOCYTES % (MANUAL) 2 % (0-11.0); NEUTROPHILS % (MANUAL) 90 (42-76)
[2022-05-16] MEDS ORDERED: DIGOXIN 0.125 MG TABLET PO SCH (13:00)
[2022-05-16] MEDS: FUROSEMIDE 40 MG/4 ML VIAL IV SCH ×2 (14:12→20:21)
[2022-05-16 16:00] VITALS: BP 145/80
--- NOTE | 2022-05-16 18:52 | NUR ---
RN CLOSING NOTE PT IN BED AWAKE WITH SON AT BEDSIDE. NO SIGNS OF RESPIRATORY DISTRESS OR SOB NOTED. PT ON 4L NC SATURATING WELL. TELE MONITOR READING A-FIB CONTROLLED AT 82. IV IN RIGHT AC 18G INTACT AND PATENT. ALL SCHEDULED MEDS GIVEN. ALL NEEDS ATTENDED TO. SAFETY CHECKS IN PLACE: BED LOCKED, BED IN LOWEST POSITION, CALL LIGHT WITHIN REACH. WILL ENDORSE TO PUBLIC SAFETY OFFICER NURSE FOR TREY.
[2022-05-16 20:00] VITALS: BP 133/80
[2022-05-16] MEDS: ATORVASTATIN 40 MG TABLET PO SCH (21:14)
[2022-05-17] VITALS: BP 134/49
[2022-05-17] MEDS: ALBUTEROL FS 2.5 MG/0.5 ML VIAL.NEB NEB SCH ×4 (01:25→20:02)
[2022-05-17] MEDS: IPRATROPIUM NEB FS 0.5 MG/2.5 ML AMPUL.NEB NEB SCH ×4 (01:26→20:02)
[2022-05-17 04:00] VITALS: BP 138/62
[2022-05-17] MEDS: methylPREDNISolone SOD SUCC 40 MG/ML VIAL IV SCH ×3 (05:33→16:19)
--- NOTE | 2022-05-17 05:58 | NUR ---
END OF SHIFT REPORT Patient in bed. Alert oriented x3. Maintaining Oxygenation 95% on 2L NC. Afib Controlled in the Tele monitor. Ambulated to the bathroom, observed no sob with ambulation. On steroid IV, neb q4H. No c/o chest pain, denies N/V. Will endorse to oncoming RN.
[2022-05-17 06:53] LABS: BASOPHILS % (AUTO) 0.1 % (0.0-2.0); HEMATOCRIT 31 % (39-51); HEMOGLOBIN 10.2 g/dL (13.5-17.5); LYMPHOCYTES # (AUTO) 0.5 K/uL (0.8-4.8); LYMPHOCYTES % (AUTO) 7.3 % (20.0-44.0); MEAN CORPUSCULAR HGB CONC 33 g/dl (31.0-36.0); MEAN CORPUSCULAR VOLUME 92 fL (80-96); MONOCYTES # (AUTO) 0.1 K/uL (0.1-1.30); MONOCYTES % (AUTO) 1.9 % (2.0-12.0); NEUTROPHILS # (AUTO) 5.9 K/uL (1.8-8.9); NEUTROPHILS % (AUTO) 90.7 % (43.0-81.0); PLATELET COUNT (AUTO) 193 K/uL (150-450); RED BLOOD CELL COUNT(AUTO) 3.38 MIL/uL (4.5-6.0); WHITE BLOOD COUNT (AUTO) 6.5 K/uL (4.3-11.0)
[2022-05-17 07:56] LABS: MAGNESIUM 2.1 mg/dL (1.8-2.4); PHOSPHORUS 5.8 mg/dL (2.5-4.9)
[2022-05-17 08:00] VITALS: BP 169/90
--- NOTE | 2022-05-17 08:25 | NUR ---
RN OPENING NOTE PATIENT RECEIVED IN BED, AO X 3, ABLE TO RESPONDS ALL STIMULI. IN NO ACUTE DISTRESS NOTED. RESPIRATORY EVEN AND UNLABORED ON OXYGEN AT 2Ls VIA NC. SKIN IS WARM TO TOUCH, KEEP CLEAN/DRY. KEPT ELEVATED HOB FOR ENSURE AIRWAY AND ASPIRATION PRECAUTION, ALSO LOWEST POSITION OF THE BED, S/R UP X 3, BED ALARM IS ON AT ALL THE TIMES. ALL SAFETY PRECAUTION APPLIED. CALL LIGHT WITHIN REACH, WILL CONTINUE TO MONITOR.
[2022-05-17 08:30] LABS: CALCIUM, SERUM 8.2 mg/dL (8.5-10.1); CARBON DIOXIDE 23 mmol/L (21-32); CHLORIDE 104 mmol/L (98-107); CREATININE 3.1 mg/dL (0.6-1.3); GLUCOSE 230 mg/dL (74-106); POTASSIUM 4.8 mmol/L (3.5-5.1); SODIUM SERUM 137 mmol/L (136-145); UREA NITROGEN, BLOOD 71 mg/dL (7-18)
[2022-05-17] MEDS: DILTIAZEM HCL CD 180 MG PO SCH (08:51)
[2022-05-17] MEDS: APIXABAN 5 MG TABLET PO SCH ×2 (08:55→16:18)
[2022-05-17] MEDS: MONTELUKAST SODIUM (10MG) 10 MG TABLET PO SCH (08:55)
[2022-05-17] MEDS: LEVOTHYROXINE SODIUM 25 MCG TABLET PO SCH (08:55)
[2022-05-17] MEDS: LINAGLIPTIN 5 MG TABLET PO SCH (08:56)
[2022-05-17] MEDS: PANTOPRAZOLE 40 MG TABLET.DR PO SCH (08:57)
[2022-05-17] MEDS: hydrALAZINE HCL 50 MG TABLET PO SCH ×3 (10:42→16:19)
[2022-05-17] MEDS: NITROGLYCERIN 30 GM TUBE TP SCH ×2 (10:46→20:51)
[2022-05-17 12:00] VITALS: BP 119/69
--- NOTE | 2022-05-17 13:54 | NUR ---
PATIENT'S BUN AND CREATININE LEVEL HAS BEEN ABNORMAL, INFORMED DR. GEORGE WHO IS ON NEPHRO CONSULT.
[2022-05-17 16:00] VITALS: BP 149/67
--- NOTE | 2022-05-17 18:46 | NUR ---
RN CLOSING NOTE PATIENT IN BED RESTING. IN NO ACUTE DISTRESS NOTED. RESPIRATORY EVEN AND UNLABORED ON OXYGEN AT 2Ls. SKIN IS WARM TO TOUCH, KEEP CLEAN/DRY, INTACT IV LINE. KEPT ELEVATED HOB FOR ENSURE AIRWAY AND ASPIRATION PRECAUTION. BED IN LOWEST POSITION AND LOCKED. BED ALARM IS ON AT ALL THE TIMES. ALL SAFETY MEASURED IN PLACED. CALL LIGHT WITHIN REACH, WILL ENDORSED TO NEXT SHIFT.
--- NOTE | 2022-05-17 19:30 | NUR ---
FINANCIAL REPORTING ANALYST OPENING NOTES RECEIVED PT LYING IN BED AWAKE. A/O X3. NOT IN APPARENT DISTRESS. HAS O2 AT 2 LPM VIA NASAL CANULA. NO SOB OR NOTED. NO C/O PAIN OR DISCOMFORT AT THIS TIME. ON TELE MONITOR READING A-FIB AT 75 BPM. HAS RIGHT FOREARM IV ACCESS #22G AND SALINE LOCKED. NO S/S OF INFILTRATION NOTED. MAINTAINED ON FLUID RESTRICTION. SAFETY MEASURES IN PLACE: BED IN LOWEST POSITION AND LOCKED, ALARM ON, CALL LIGHT WITHIN REACH. WILL CONTINUE POC.
[2022-05-17 20:00] VITALS: BP 154/79
[2022-05-17] MEDS: LEVOFLOXACIN 250 MG /D5W 50 ML 250 MG in PREMIX 1 EA IV SCH (20:52)
[2022-05-17] MEDS: ATORVASTATIN 40 MG TABLET PO SCH (21:08)
[2022-05-18] VITALS: BP 149/73
[2022-05-18] MEDS: IPRATROPIUM NEB FS 0.5 MG/2.5 ML AMPUL.NEB NEB SCH ×4 (01:54→20:16)
[2022-05-18] MEDS: ALBUTEROL FS 2.5 MG/0.5 ML VIAL.NEB NEB SCH ×4 (01:54→20:16)
[2022-05-18 04:00] VITALS: BP 147/69
[2022-05-18 06:18] LABS: BASOPHILS # (AUTO) 0.1 K/uL (0.0-0.2); BASOPHILS % (AUTO) 0.6 % (0.0-2.0); HEMATOCRIT 31 % (39-51); HEMOGLOBIN 10.3 g/dL (13.5-17.5); LYMPHOCYTES # (AUTO) 0.3 K/uL (0.8-4.8); LYMPHOCYTES % (AUTO) 3.7 % (20.0-44.0); MEAN CORPUSCULAR HGB CONC 33 g/dl (31.0-36.0); MEAN CORPUSCULAR VOLUME 91 fL (80-96); MONOCYTES # (AUTO) 0.3 K/uL (0.1-1.30); MONOCYTES % (AUTO) 3.3 % (2.0-12.0); NEUTROPHILS % (AUTO) 92.4 % (43.0-81.0); PLATELET COUNT (AUTO) 224 K/uL (150-450); RED BLOOD CELL COUNT(AUTO) 3.41 MIL/uL (4.5-6.0); WHITE BLOOD COUNT (AUTO) 8.6 K/uL (4.3-11.0)
[2022-05-18 06:39] LABS: ALANINE AMINOTRANSFERASE 22 U/L (12-78); ALBUMIN 2.8 g/dL (3.4-5.0); ALKALINE PHOSPHATASE 62 U/L (46-116); ASPARTATE AMINOTRANSFERASE 15 U/L (15-37); BILIRUBIN,TOTAL 0.4 mg/dL (0.2-1.0); CALCIUM, SERUM 8.4 mg/dL (8.5-10.1); CARBON DIOXIDE 22 mmol/L (21-32); CHLORIDE 104 mmol/L (98-107); CREATININE 3.2 mg/dL (0.6-1.3); GLUCOSE 232 mg/dL (74-106); MAGNESIUM 2.1 mg/dL (1.8-2.4); PHOSPHORUS 5.4 mg/dL (2.5-4.9); POTASSIUM 4.9 mmol/L (3.5-5.1); SODIUM SERUM 136 mmol/L (136-145); TOTAL PROTEIN, SERUM 5.9 g/dL (6.4-8.2)
[2022-05-18 06:53] LABS: UREA NITROGEN, BLOOD 95 mg/dL (7-18)
--- NOTE | 2022-05-18 06:58 | NUR ---
SOLE BLACKER NOTES RECEIVED CRITICAL RESULT FROM LAB BUN 95. WILL ENDORSE TO AM SHIFT TO NOTIFY INCOMING MD.
--- NOTE | 2022-05-18 07:00 | NUR ---
CHIEF PSYCHOLOGY CLOSING NOTES PT LYING IN BED SLEEPING INTERMITTENTLY. A/O X3. NO ACUTE DISTRESS NOTED. HAS O2 AT 2 LPM VIA NASAL CANULA, TOLERATING WELL. BREATHING EVEN AND NON-LABORED. AFEBRILE. NO PAIN OR DISCOMFORT NOTED. ON TELE MONITOR READING A-FIB AT 80 BPM. HAS RIGHT FOREARM IV ACCESS #22G AND SALINE LOCKED. INTACT, PATENT AND FLUSHING. ALL DUE MEDS GIVEN AND NEEDS ATTENDED. SAFETY MEASURES MAINTAINED: BED IN LOWEST POSITION AND LOCKED. ALARM ON, CALL LIGHT WITHIN REACH. WILL ENDORSE TO AM SHIFT.
[2022-05-18] MEDS: PANTOPRAZOLE 40 MG TABLET.DR PO SCH (07:55)
--- NOTE | 2022-05-18 08:12 | NUR ---
RN OPENING NOTE PATIENT RECEIVED IN BED, AO X 3, K[place]AKH SPEAKING, ABLE TO RESPONDS ALL STIMULI. IN NO ACUTE DISTRESS NOTED. RESPIRATORY EVEN AND UNLABORED ON OXYGEN AT 2Ls VIA NC. SKIN IS WARM TO TOUCH, KEEP CLEAN/DRY. KEPT ELEVATED HOB FOR ENSURE AIRWAY AND ASPIRATION PRECAUTION, ALSO LOWEST POSITION OF THE BED, S/R UP X 2, BED ALARM IS ON AT ALL THE TIMES. ALL SAFETY PRECAUTION APPLIED. CALL LIGHT WITHIN REACH, WILL CONTINUE TO MONITOR.
[2022-05-18] MEDS: methylPREDNISolone SOD SUCC 40 MG/ML VIAL IV SCH ×2 (08:41→17:04)
[2022-05-18] MEDS: LEVOTHYROXINE SODIUM 25 MCG TABLET PO SCH (08:41)
[2022-05-18] MEDS: MONTELUKAST SODIUM (10MG) 10 MG TABLET PO SCH (08:41)
[2022-05-18] MEDS: LINAGLIPTIN 5 MG TABLET PO SCH (08:42)
[2022-05-18] MEDS: hydrALAZINE HCL 50 MG TABLET PO SCH ×3 (08:42→17:06)
[2022-05-18] MEDS: DILTIAZEM HCL CD 180 MG PO SCH (08:42)
[2022-05-18] MEDS: APIXABAN 5 MG TABLET PO SCH ×2 (08:43→17:05)
[2022-05-18] MEDS: NITROGLYCERIN 30 GM TUBE TP SCH ×2 (08:47→21:16)
[2022-05-18 08:54] VITALS: BP 142/72
[2022-05-18 12:00] VITALS: BP 155/76
[2022-05-18 16:47] VITALS: BP 140/62
--- NOTE | 2022-05-18 18:58 | NUR ---
RN CLOSING NOTE PATIENT IN BED RESTING. IN NO ACUTE DISTRESS NOTED. RESPIRATORY EVEN AND UNLABORED ON ROOM AIR. SKIN IS WARM TO TOUCH, KEEP CLEAN/DRY, INTACT IV LINE. PATIENT R/O [place] AND DR. BAUTISTA PLANNING HD CATHETER REPLACEMENT. SPOKE WITH HIS GRANDSON WHO SAID "WILL DISCUSS WITH FAMILY, WE NEED MORE TIME TO THINK ABOUT IT". KEPT ELEVATED HOB FOR ENSURE AIRWAY AND ASPIRATION PRECAUTION. BED IN LOWEST POSITION AND LOCKED. BED ALARM IS ON AT ALL THE TIMES. ALL SAFETY MEASURED IN PLACED. CALL LIGHT WITHIN REACH, WILL ENDORSED TO NEXT SHIFT.
--- NOTE | 2022-05-18 19:30 | NUR ---
RN OPENING NOTE PATIENT SITTING UP IN BED, AWAKE. A/O X 4. BRITISH SPEAKING BUT ABLE TO SPEAK AND UNDERSTAND SOME [place]. GRAND DAUGHTER AND GRAND SON AT BEDSIDE. PATIENT HAS 4 LPM O2 SUPPLEMENT VIA NC, TOLERATING WELL. NO SOB OR DYSPNEA REPORTED UPON REST. WHEEZING AND DYSPNEA PRESENT UPON EXERTION. PATIENT'S TELE MONITOR READS 87 BPM. RFA 22G SALINE LOCKED AT THIS TIME. PATIENT DOES NOT REPORT ANY PAIN. SAFETY MEASURES IN PLACE: BED LOCKED AND IN LOWEST POSITION, CALL LIGHT WITHIN REACH, SIDE RAILS UP. WILL MONITOR PATIENT CLOSELY.
[2022-05-18 20:35] VITALS: BP 122/77
--- NOTE | 2022-05-18 21:00 | NUR ---
RN NOTE MOVED PATIENT TO 323-1 D/T PATIENT COMPLAINING ABOUT BEING TO NOISY IN HIS ROOM BECAUSE OF THE GTF MACHINE AND IV PUMP.
[2022-05-18] MEDS: ATORVASTATIN 40 MG TABLET PO SCH (21:16)
[2022-05-19 00:30] VITALS: BP 119/69
[2022-05-19] MEDS: IPRATROPIUM NEB FS 0.5 MG/2.5 ML AMPUL.NEB NEB SCH ×4 (02:04→19:43)
[2022-05-19] MEDS: ALBUTEROL FS 2.5 MG/0.5 ML VIAL.NEB NEB SCH ×4 (02:04→19:43)
[2022-05-19 05:21] VITALS: BP 122/49
[2022-05-19 06:53] LABS: BASOPHILS % (AUTO) 0.1 % (0.0-2.0); HEMATOCRIT 32 % (39-51); HEMOGLOBIN 10.5 g/dL (13.5-17.5); LYMPHOCYTES # (AUTO) 0.4 K/uL (0.8-4.8); LYMPHOCYTES % (AUTO) 4.5 % (20.0-44.0); MEAN CORPUSCULAR HGB CONC 33 g/dl (31.0-36.0); MEAN CORPUSCULAR VOLUME 92 fL (80-96); MONOCYTES # (AUTO) 0.3 K/uL (0.1-1.30); MONOCYTES % (AUTO) 3.2 % (2.0-12.0); NEUTROPHILS # (AUTO) 7.4 K/uL (1.8-8.9); NEUTROPHILS % (AUTO) 92.2 % (43.0-81.0); PLATELET COUNT (AUTO) 204 K/uL (150-450); RED BLOOD CELL COUNT(AUTO) 3.46 MIL/uL (4.5-6.0)
--- NOTE | 2022-05-19 06:54 | NUR ---
RN CLOSING NOTE PATIENT SLEEPING, EASLIY AWAKENED. A/O X 4. LUXEMBOURGISH SPEAKING BUT ABLE TO SPEAK AND UNDERSTAND SOME MAURITIAN. PATIENT HAS 4 LPM O2 SUPPLEMENT VIA NC, TOLERATING WELL. BREATHING EVEN AND UNLABORED. PATIENT'S TELE MONITOR READS 78 BPM. RFA 22G SALINE LOCKED AT THIS TIME. PATIENT DOES NOT REPORT ANY PAIN. SAFETY MEASURES IN PLACE: BED LOCKED AND IN LOWEST POSITION, CALL LIGHT WITHIN REACH, SIDE RAILS UP. WILL MONITOR PATIENT CLOSELY. ALL NEEDS MET AND ATTENDED. ALL ORDERS CARRIED OUT. WILL ENDORSE TO DAY SHIFT NURSE FOR TREY.
--- NOTE | 2022-05-19 07:40 | NUR ---
CAN RUNNER OPENING NOTE PATIENT RECEIVED IN BED AND SLEEPING. A/O X3, FARSI SPEAKING. NO S/SX OF DISTRESS OR PAIN. IV ACCESS TO RFA INTACT AND PATENT. NO S/SX OF BLEEDING OR INFILTRATION. SUPPLEMENTAL OXYGEN REMAINS PLACE VIA NASAL CANULA @ 4L. TOLERATING WELL. SAFETY MEASURES INTACT, BED LOW AND LOCKED. CALL LIGHT WITHIN REACH, SIDERAIL UP X2. WILL CONT TO MONITOR.
[2022-05-19 08:00] VITALS: BP 122/64
[2022-05-19 08:19] LABS: CALCIUM, SERUM 8.6 mg/dL (8.5-10.1); CARBON DIOXIDE 21 mmol/L (21-32); CHLORIDE 103 mmol/L (98-107); CREATININE 3.5 mg/dL (0.6-1.3); GLUCOSE 249 mg/dL (74-106); MAGNESIUM 2.1 mg/dL (1.8-2.4); PHOSPHORUS 7.1 mg/dL (2.5-4.9); POTASSIUM 5.3 mmol/L (3.5-5.1); SODIUM SERUM 137 mmol/L (136-145)
[2022-05-19 08:34] LABS: UREA NITROGEN, BLOOD 108 mg/dL (7-18)
[2022-05-19] MEDS: LINAGLIPTIN 5 MG TABLET PO SCH (08:53)
[2022-05-19] MEDS: PANTOPRAZOLE 40 MG TABLET.DR PO SCH (08:53)
[2022-05-19] MEDS: DILTIAZEM HCL CD 180 MG PO SCH (08:53)
[2022-05-19] MEDS: hydrALAZINE HCL 50 MG TABLET PO SCH ×3 (08:53→17:11)
[2022-05-19] MEDS: LEVOTHYROXINE SODIUM 25 MCG TABLET PO SCH (08:53)
[2022-05-19] MEDS: MONTELUKAST SODIUM (10MG) 10 MG TABLET PO SCH (08:54)
[2022-05-19] MEDS: methylPREDNISolone SOD SUCC 40 MG/ML VIAL IV SCH (08:54)
[2022-05-19] MEDS: APIXABAN 5 MG TABLET PO SCH (08:56)
[2022-05-19 10:23] LABS: LYMPHOCYTES % (MANUAL) 6 % (16-48); MONOCYTES % (MANUAL) 2 % (0-11.0); NEUTROPHILS % (MANUAL) 92 (42-76)
[2022-05-19] MEDS: NITROGLYCERIN 30 GM TUBE TP SCH ×2 (11:06→20:51)
[2022-05-19 12:00] VITALS: BP 136/74
[2022-05-19 16:00] VITALS: BP 139/69
--- NOTE | 2022-05-19 19:09 | NUR ---
FINE GRADER CLOSING NOTE PATIENT REMAINED IN BED ON SHIFT A/O X3, FARSI SPEAKING. AMBULATES TO/FROM BATHROOM WITHOUT ASSIST. NO S/SX OF DISTRESS OR PAIN. IV ACCESS TO RFA INTACT AND PATENT. NO S/SX OF BLEEDING OR INFILTRATION. SUPPLEMENTAL OXYGEN REMAINS PLACE VIA NASAL CANULA @ 4L. TOLERATING WELL. TOLERATED ALL MEDICATIONS WELL ON SHIFT. CONSENT NEEDED FOR PLACEMENT OF HD CATHETER AND FUTURE SCHEDULED HEMODIALYSIS APPOINTMENTS. WILL ENDORSE TO ONCOMING NURSE. SAFETY MEASURES INTACT, BED LOW AND LOCKED. CALL LIGHT WITHIN REACH, SIDERAIL UP X2. WILL CONT TO MONITOR.
[2022-05-19 20:00] VITALS: BP 160/86
--- NOTE | 2022-05-19 20:34 | NUR ---
MS/TELE/RN ON INITIAL SHIFT ROUNDING, PATIENT WAS AWAKE, ALERT, ORIENTED, NO C/O PAIN, NO SIGNS OF DISTRESS NOTED, CALL LIGHT IN REACH, FALL PRECAUTIONS PER PROTOCOL IMPLEMENTED, WILL MONITOR.
[2022-05-19] MEDS: ATORVASTATIN 40 MG TABLET PO SCH (20:50)
[2022-05-19] MEDS: LEVOFLOXACIN 250 MG /D5W 50 ML 250 MG in PREMIX 1 EA IV SCH (20:51)
[2022-05-20] VITALS: BP 119/78
--- NOTE | 2022-05-20 01:08 | NUR ---
MS/TELE/RN PATIENT IS SLEEPING AT THIS TIME, NO SIGNS OF DISTRESS NOTED, CALL LIGHT IN REACH, WILL CONTINUE TO MONITOR.
[2022-05-20] MEDS: IPRATROPIUM NEB FS 0.5 MG/2.5 ML AMPUL.NEB NEB SCH ×2 (02:28→07:35)
[2022-05-20] MEDS: ALBUTEROL FS 2.5 MG/0.5 ML VIAL.NEB NEB SCH ×2 (02:28→07:35)
[2022-05-20 06:03] LABS: BASOPHILS % (AUTO) 0.2 % (0.0-2.0); HEMATOCRIT 33 % (39-51); HEMOGLOBIN 10.7 g/dL (13.5-17.5); LYMPHOCYTES # (AUTO) 0.5 K/uL (0.8-4.8); LYMPHOCYTES % (AUTO) 3.4 % (20.0-44.0); MEAN CORPUSCULAR HGB CONC 33 g/dl (31.0-36.0); MEAN CORPUSCULAR VOLUME 92 fL (80-96); MONOCYTES # (AUTO) 1.1 K/uL (0.1-1.30); MONOCYTES % (AUTO) 7.8 % (2.0-12.0); NEUTROPHILS # (AUTO) 12.5 K/uL (1.8-8.9); NEUTROPHILS % (AUTO) 88.6 % (43.0-81.0); PLATELET COUNT (AUTO) 206 K/uL (150-450); RED BLOOD CELL COUNT(AUTO) 3.56 MIL/uL (4.5-6.0); WHITE BLOOD COUNT (AUTO) 14.1 K/uL (4.3-11.0)
--- NOTE | 2022-05-20 06:11 | NUR ---
MS/TELE/RN PATIENT IS STILL SLEEPING, NO SIGNS OF DISTRESS NOTED, CALL LIGHT IN REACH, ALL NEEDS ATTENDED AT THIS TIME, WILL CONTINUE TO MONITOR.
--- NOTE | 2022-05-20 06:39 | NUR ---
MS/TELE/RN PATIENT REFUSED TO USE URINAL FOR AN ACCURATE OUTPUT.
[2022-05-20 07:24] LABS: CALCIUM, SERUM 8.5 mg/dL (8.5-10.1); CARBON DIOXIDE 23 mmol/L (21-32); CHLORIDE 103 mmol/L (98-107); CREATININE 3.3 mg/dL (0.6-1.3); GLUCOSE 218 mg/dL (74-106); MAGNESIUM 2.1 mg/dL (1.8-2.4); PHOSPHORUS 6.3 mg/dL (2.5-4.9); POTASSIUM 5.4 mmol/L (3.5-5.1); SODIUM SERUM 136 mmol/L (136-145)
--- NOTE | 2022-05-20 07:30 | NUR ---
CALCULATION CLERK NOTES PT IN BED, ASLEEP, NO SIGN OF PAIN OR ANY DISCOMFORT, BREATHING PATTERN NORMAL, CALL LIGHT WITHIN EASY REACH, KEPT WARM AND COMFORTABLE IN BED.
[2022-05-20 07:49] LABS: UREA NITROGEN, BLOOD 116 mg/dL (7-18)
[2022-05-20 08:00] VITALS: BP 142/90
[2022-05-20] MEDS ORDERED: predniSONE 20 MG TABLET PO SCH (09:00)
[2022-05-20] MEDS: DILTIAZEM HCL CD 180 MG PO SCH (09:02)
[2022-05-20] MEDS: LEVOTHYROXINE SODIUM 25 MCG TABLET PO SCH (09:02)
[2022-05-20] MEDS: PANTOPRAZOLE 40 MG TABLET.DR PO SCH (09:02)
[2022-05-20] MEDS: MONTELUKAST SODIUM (10MG) 10 MG TABLET PO SCH (09:02)
[2022-05-20] MEDS: LINAGLIPTIN 5 MG TABLET PO SCH (09:02)
[2022-05-20 09:03] VITALS: BP 142/90
[2022-05-20] MEDS: NITROGLYCERIN 30 GM TUBE TP SCH (09:03)
[2022-05-20] MEDS: hydrALAZINE HCL 50 MG TABLET PO SCH (09:03)
--- NOTE | 2022-05-20 11:30 | NUR ---
ATHLETIC COORDINATOR NOTES PT IN BED, AWAKE, ALERT AND ORIENTED, ABLE TO WALK TO THE BATHROOM WITH SLOW AND STEADY GAIT WITH STANDBY ASSISTANCE, SON GENO AT BEDSIDE, PATIENT STATES THAT HE WANTS TO GO HOME HUMBERTO, DR. VELAZQUEZ INFORMED, MD SPOKE WITH PT AND PT'S SON AT LENGTH, PLAN OF CARE EXPLAINED BY MD TO PT AND SON, DISCUSSED RISKS OF LEAVING AGAINST MEDICAL ADVICE, PT STILL WANTS TO GO HOME, PT INSTRUCTION GIVEN TO FOLLOW UP WITH HIS PRIMARY CARE PHYSICIAN AND PERMASTONE MECHANIC, PT AND SON VERBALIZED UNDERSTANDING, BELONGINGS ACCOUNTED FOR, TELE MONITOR REMOVED AND SUBMITTED BACK TO NET APPLICATION ARCHITECT, ASSISTED TO HOSPITAL LOBBY VIA WHEELCHAIR, LEFT VIA PRIVATE CAR IN STABLE CONDITION.
--- NOTE | 2022-05-20 11:30 | NUR ---
CLAIMS ASSOCIATE NOTES CHARGE NURSE AND NURSING VOLCANOLOGY PROFESSOR MADE AWARE OF PT LEAVING AMA.
[2022-05-20 13:14] LABS: BASOPHILS % (MANUAL) 0 % (0.0-2.0); EOSINOPHILS % (MANUAL) 0 % (0-4); LYMPHOCYTES % (MANUAL) 4 % (16-48); MONOCYTES % (MANUAL) 5 % (0-11.0); NEUTROPHILS % (MANUAL) 91 (42-76)
== END 2022-05-20 11:30 | disposition left against medical advice (07) | DRG 189 ==
LOC: ER 17:06 → TELE 20:22
PROVIDERS: ADMIT Student in an Organized Health Care Education/Training Program; ATTEND Nurse Practitioner Acute Care
DX: J96.01 Acute respiratory failure with hypoxia (principal); I50.33 Acute on chronic diastolic (congestive) heart failure; N17.0 Acute kidney failure with tubular necrosis; J45.901 Unspecified asthma with (acute) exacerbation; J44.1 Chronic obstructive pulmonary disease with (acute) exacerbation; I13.0 Hypertensive heart and chronic kidney disease with heart failure and stage 1 through stage 4 chronic kidney disease, or unspecified chronic kidney disease; J90 Pleural effusion, not elsewhere classified; E44.0 Moderate protein-calorie malnutrition; J98.11 Atelectasis; N18.9 Chronic kidney disease, unspecified; I25.10 Atherosclerotic heart disease of native coronary artery without angina pectoris; E11.22 Type 2 diabetes mellitus with diabetic chronic kidney disease; Z79.01 Long term (current) use of anticoagulants; Z79.84 Long term (current) use of oral hypoglycemic drugs; Z79.899 Other long term (current) drug therapy; Z87.19 Personal history of other diseases of the digestive system; E03.9 Hypothyroidism, unspecified; D63.8 Anemia in other chronic diseases classified elsewhere; E78.5 Hyperlipidemia, unspecified; F17.200 Nicotine dependence, unspecified, uncomplicated; I48.0 Paroxysmal atrial fibrillation; I77.810 Thoracic aortic ectasia; N28.1 Cyst of kidney, acquired; Z79.02 Long term (current) use of antithrombotics/antiplatelets; Z91.15 Patient's noncompliance with renal dialysis; Z86.16 Personal history of COVID-19; Z20.822 Contact with and (suspected) exposure to COVID-19
CPT/HCPCS: 36415; 71045-TC; 71250-TC; 76770-TC; 80048-TC; 80053-TC; 80076-TC; 80162-TC; 83735-TC; 83880; 84100-TC; 84484-TC; 85025-TC; 86704; 86705; 86706; 86803; 87081-TC; 87340; 93307-TC; 94799-TC; A4216; C9803; G0378; J1940; J1956; J2920; J2930; J7050